=== PATIENT | female | born 1960 | race African-American/Black ===

== ENCOUNTER 2017-03-25 12:19 | Emergency (ER) | payer SELFPAY ==
[2017-03-25 12:42] VITALS: BP 146/84; PULSE 67; TEMP 98.5; BMI 23.9
--- NOTE | 2017-03-25 13:40 | PDOC ---
History of Present Illness - General Chief Complaint: Pain Stated Complaint: LEG INJURY Time Seen by Provider: 03/25/17 13:00 Exam Limitations: No Limitations - History of Present Illness Initial Comments: 03/25/17 13:35 57-year-old female presents the ED for evaluation of right thigh injury. 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 Patient states looked at her skin and noted intact skin along with no blood or rip in uniform. Patient decided come to the ER today since she was worried and needs a second opinion. Timing/Duration: 4-6 hours Associated Symptoms: reports: denies symptoms Past History - Travel Traveled outside of the country in the last 30 days: No - Past Medical History Allergies/Adverse Reactions: Allergies Allergy/AdvReac Type Severity Reaction Status Date / Time No Known Allergies Allergy Verified 03/25/17 12:37 Home Medications: Ambulatory Orders NK [No Known Home Medication] 03/25/17 COPD: No - Suicide/Smoking/Psychosocial Hx Smoking History: Current every day smoker Have you smoked in the past 12 months: Yes Number of Cigarettes Smoked Daily: 7 Information on smoking cessation initiated: Yes 'Breaking Loose' booklet given: 03/25/17 Hx Alcohol Use: No Drug/Substance Use Hx: No Substance Use Type: None Patient Lives Alone: No Lives with/in: spouse/SO Review of Systems - Review of Systems Able to Perform ROS?: Yes Constitutional: No: Symptoms Reported Integumentary: Yes: See HPI *Physical Exam - Vital Signs Last Vital Signs Temp Pulse Resp BP Pulse Ox 98.5 F 67 18 146/84 100 03/25/17 12:38 03/25/17 12:38 03/25/17 12:38 03/25/17 12:38 03/25/17 12:38 - Physical Exam General Appearance: Yes: Nourished, Appropriately Dressed. No: Apparent Distress Extremity: positive: Normal Capillary Refill, Normal Inspection, Normal Range of Motion. negative: Tender Integumentary: positive: Normal Color, Warm, Moist, Other (intact skin noted to rt lower anterior thigh. No redness or ecchymosis) Neurologic: positive: Motor Strength 5/5 (ambulatory) Medical Decision Making - Medical Decision Making 03/25/17 13:37 Pt here for evaluation of rt thigh injury from object in garbage at work. Pt unsure of what pricked her. On exam skin intact, no redness or ecchymosis. Discharge home *DC/Admit/Observation/Transfer Diagnosis at time of Disposition: Injury of right leg - Discharge Dispostion Disposition: HOME Condition at time of disposition: Good - Referrals - Patient Instructions Printed Discharge Instructions: How to Perform a Skin Exam Additional Instructions: At this time the skin was intact with no signs of broken skin. Continue to use safety measures while at work - Post Discharge Activity
== END 2017-03-25 14:13 | disposition home or self-care (01) ==
LOC: JERFT 12:19 → JER 12:19 → JERFT 14:13
DX: S79.821A Other specified injuries of right thigh, initial encounter (principal); W22.8XXA Striking against or struck by other objects, initial encounter; Y93.89 Activity, other specified; Y92.128 Other place in nursing home as the place of occurrence of the external cause; Y99.0 Civilian activity done for income or pay
CPT/HCPCS: 99281-25

== ENCOUNTER 2017-03-31 20:50 | Emergency (ER) | payer OTHER ==
--- NOTE | 2017-03-31 21:27 | PDOC ---
Rapid Medical Evaluation Chief Complaint: Pain, Acute Time Seen by Provider: 03/31/17 21:21 Medical Evaluation: Allergies Allergy/AdvReac Type Severity Reaction Status Date / Time No Known Allergies Allergy Verified 03/25/17 12:37 03/31/17 21:21 have performed a brief in-person evaluation of this patient. The patient presents with a chief complaint of: deep pain to left shoulder x 5 days - works in [place] with heavy lifting, no relief with Aleve. apspercream./ no fevers/ URI symptoms Pertinent physical exam findings: pain at upper deltoid/ ligamentous area. I have ordered the following: right shoulder XRAY The patient will proceed to the ED for further evaluation.
[2017-03-31 21:32] VITALS: BP 138/71; PULSE 68; TEMP 98.1; BMI 23.9
[2017-03-31] MEDS ORDERED: CYCLOBENZAPRINE HCL 10 MG TABLET (FP) PO ONE ×2 (22:42→22:44)
[2017-03-31] MEDS ORDERED: KETOROLAC TROMETHAMINE 30 MG/1 ML VIAL IM ONE (22:42)
[2017-03-31] MEDS ORDERED: CYCLOBENZAPRINE HCL 10 MG TABLET (FP) ONE (22:43)
[2017-03-31] MEDS ORDERED: KETOROLAC TROMETHAMINE 30 MG/1 ML VIAL ONE (22:44)
--- NOTE | 2017-03-31 22:47 | PDOC ---
History of Present Illness - General Chief Complaint: Pain, Acute Stated Complaint: SHOULDER PAIN Time Seen by Provider: 03/31/17 21:21 Past History - Past Medical History Allergies/Adverse Reactions: Allergies Allergy/AdvReac Type Severity Reaction Status Date / Time No Known Allergies Allergy Verified 03/31/17 21:33 Home Medications: Ambulatory Orders Ibuprofen 800 mg PO TID #30 tablet 03/31/17 COPD: No - Suicide/Smoking/Psychosocial Hx Smoking History: Never smoked Have you smoked in the past 12 months: Yes Number of Cigarettes Smoked Daily: 7 'Breaking Loose' booklet given: 03/25/17 Hx Alcohol Use: No Drug/Substance Use Hx: No Substance Use Type: None *Physical Exam - Vital Signs Last Vital Signs Temp Pulse Resp BP Pulse Ox 98.1 F 68 16 138/71 100 03/31/17 21:30 03/31/17 21:30 03/31/17 21:30 03/31/17 21:30 03/31/17 21:30 *DC/Admit/Observation/Transfer Diagnosis at time of Disposition: Tendonitis of shoulder, right - Discharge Dispostion Disposition: HOME Condition at time of disposition: Good Admit: No - Referrals Referrals: Alfredo Guerrero MD [Staff Physician] - - Patient Instructions Printed Discharge Instructions: DI for Shoulder Tendinopathy Additional Instructions: You have shoulder tendonitis and a bone spur as seen on your x-ray. Please follow up with orthopedics this week. You may take 800mg every 8 hours as needed for pain. You may use a heating pad on the shoulder to help with pain. Gentle stretching of your arm may help as well. Return to the ED if you have worsening pain, numbness and tingling, or weakness in your arm, or any changes in your symptoms - Post Discharge Activity Forms/Work/School Notes: Back to Work
== END 2017-03-31 22:57 | disposition home or self-care (01) ==
LOC: JERFT 20:50
PROC: 3E0233Z Introduction of Anti-inflammatory into Muscle, Percutaneous Approach (ICD-10-PCS; principal; 2017-03-31)
DX: M75.82 Other shoulder lesions, left shoulder (principal)
CPT/HCPCS: 73030-TC-RT; 99281-25

== ENCOUNTER 2018-01-05 21:23 | Emergency (ER) | payer OTHER ==
--- NOTE | 2018-01-05 21:42 | PDOC ---
Rapid Medical Evaluation Chief Complaint: Eye Problem Time Seen by Provider: 01/05/18 21:40 Medical Evaluation: Allergies Allergy/AdvReac Type Severity Reaction Status Date / Time No Known Allergies Allergy Verified 09/15/17 00:29 01/05/18 21:40 left eye lid swelling x 1 days. denies pain to alessandro eye with movement PE; left eye lid swelling A: preseptal celllitis? P: patient to the ER for further management of care. Discharge Disposition - Diagnosis Preseptal cellulitis of left upper eyelid - Referrals Referrals: Rory Carroll MD [Primary Care Provider] - - Patient Instructions - Post Discharge Activity
[2018-01-05 21:43] VITALS: BP 125/78; PULSE 76; TEMP 98.6; BMI 28.0
[2018-01-05] MEDS ORDERED: ERYTHROMYCIN 0.5% OPHTHALMIC OINTMENT 3.5 GM TUBE OD ONE (22:25)
--- NOTE | 2018-01-05 22:28 | PDOC ---
History of Present Illness - General Chief Complaint: Eye Problem Stated Complaint: Eye Problem Time Seen by Provider: 01/05/18 21:40 History Source: Patient Exam Limitations: No Limitations - History of Present Illness Initial Comments: 01/05/18 22:24 57 yr female with left eyelid swelling started this am. pt noticed discharge in inner corner, itchy since last night. no contacts, no trauma to the eye. 01/05/18 22:29 Timing/Duration: 24 hours Severity: mild Past History - Past Medical History Allergies/Adverse Reactions: Allergies Allergy/AdvReac Type Severity Reaction Status Date / Time No Known Allergies Allergy Verified 01/05/18 21:43 Home Medications: Ambulatory Orders Erythromycin 0.5% Eye Ointment [Erythromycin 0.5% Eye Ointment -] 1 applic OS TID #1 tube 01/05/18 COPD: No - Suicide/Smoking/Psychosocial Hx Smoking History: Former smoker Have you smoked in the past 12 months: Yes Number of Cigarettes Smoked Daily: 7 If you are a former smoker, when did you quit?: 6 months ago Information on smoking cessation initiated: No 'Breaking Loose' booklet given: 03/25/17 Hx Alcohol Use: No Drug/Substance Use Hx: No Substance Use Type: None Review of Systems - Review of Systems Able to Perform ROS?: Yes Is the patient limited Ethiopian proficient: No Constitutional: No: Symptoms Reported HEENTM: Yes: Symptoms Reported *Physical Exam - Vital Signs Last Vital Signs Temp Pulse Resp BP Pulse Ox 98.6 F 76 17 125/78 100 01/05/18 21:40 01/05/18 21:40 01/05/18 21:40 01/05/18 21:40 01/05/18 21:40 - Physical Exam General Appearance: Yes: Nourished, Appropriately Dressed HEENT: positive: EOMI, DHARA, Other (left upper eyelid with swelling, punctuate center with redness, neg bony tenderness, EOMI no pain , no discharge ) Medical Decision Making - Medical Decision Making 01/08/18 08:52 cc: left upper eyelid swelling , no drainage, no fever no chills EOMI without pain will treat for stye, possible early cellulitus preseptal. warm compresses to the area of pain refer to eye doctor for follow up in 2-3 days pt agrees with plan all questions asked and answered *DC/Admit/Observation/Transfer Diagnosis at time of Disposition: Preseptal cellulitis of left upper eyelid Stye Qualifiers: Laterality: left Eyelid: upper Qualified Code(s): H00.014 - Hordeolum externum left upper eyelid - Discharge Dispostion Disposition: HOME Condition at time of disposition: Good - Prescriptions Prescriptions: Erythromycin 0.5% Eye Ointment [Erythromycin 0.5% Eye Ointment -] 1 applic OS TID #1 tube - Referrals Referrals: Rory Carroll MD [Primary Care Provider] - Rosalio Jarvis [Staff Physician] - - Patient Instructions Additional Instructions: frequent warm compresses to the upper eyelid for 10 minutes every 3-4hrs apply erythromycin eye ointment 3-4 times a day follow with the eye doctor next week for follow up if not improving Return to ER if worse - Post Discharge Activity
[2018-01-05] MEDS ORDERED: ERYTHROMYCIN 0.5% OPHTHALMIC OINTMENT 3.5 GM TUBE ONE (22:30)
== END 2018-01-05 22:39 | disposition home or self-care (01) ==
LOC: JERFT 21:23
DX: L03.213 Periorbital cellulitis (principal); H00.014 Hordeolum externum left upper eyelid
CPT/HCPCS: 99281-25

== ENCOUNTER 2019-02-06 13:27 | Emergency (ER) | payer OTHER ==
[2019-02-06 13:31] VITALS: BP 126/84; PULSE 73; TEMP 98.2; BMI 28.0
--- NOTE | 2019-02-06 13:53 | PDOC ---
History of Present Illness - General Chief Complaint: Pain Stated Complaint: LT. FOOT PAIN Time Seen by Provider: 02/06/19 13:42 History Source: Patient - History of Present Illness Occurred: reports: other Severity: Yes: moderate Lower Extremity Pain Location: left: foot Past History - Past Medical History Allergies/Adverse Reactions: Allergies Allergy/AdvReac Type Severity Reaction Status Date / Time No Known Allergies Allergy Verified 02/06/19 13:31 Home Medications: Ambulatory Orders Erythromycin 0.5% Eye Ointment [Erythromycin 0.5% Eye Ointment -] 1 applic OS TID #1 tube 01/05/18 Cyclobenzaprine HCl [Flexeril 10 mg] 10 mg PO HS PRN #9 tablet 02/06/19 Ibuprofen [Motrin -] 800 mg PO Q6H #30 tablet 02/06/19 COPD: No - Psycho Social/Smoking Cessation Hx Smoking History: Never smoked Have you smoked in the past 12 months: Yes Number of Cigarettes Smoked Daily: 7 If you are a former smoker, when did you quit?: 6 months ago Information on smoking cessation initiated: No 'Breaking Loose' booklet given: 03/25/17 Hx Alcohol Use: No Drug/Substance Use Hx: No Substance Use Type: None Review of Systems - Review of Systems Musculoskeletal: No: Joint Swelling *Physical Exam - Vital Signs Last Vital Signs Temp Pulse Resp BP Pulse Ox 98.2 F 73 19 126/84 99 02/06/19 13:29 02/06/19 13:29 02/06/19 13:29 02/06/19 13:29 02/06/19 13:29 - Physical Exam General Appearance: Yes: Appropriately Dressed. No: Apparent Distress HEENT: positive: Normal Voice Neck: positive: Supple Respiratory/Chest: negative: Respiratory Distress Extremity: positive: Tender (to medial arch of plantar aspect of L foot, no swelling or erythema) Integumentary: positive: Dry, Warm Neurologic: positive: Fully Oriented, Alert, Normal Mood/Affect Medical Decision Making - Medical Decision Making 02/06/19 14:38 58-year-old female, no significant history, here with ongoing intermittent L foot pain. Patient states for the past several months she has had pain to the arch of her L foot, worse when initiating steps in the morning, improves throughout the day. For unclear reasons has never been medically evaluated for same, here today because feels the pain is getting worse. Not taking anything for symptoms See exam Suspect plantar fasciitis + ttp to medial arch of plantar L foot w/ pain on dorsiflexion -Dc w/ pain control and podiatry f/u Discharge - Discharge Information Problems reviewed: Yes Clinical Impression/Diagnosis: Foot pain Qualifiers: Laterality: left Qualified Code(s): M79.672 - Pain in left foot Condition: Good Disposition: HOME - Additional Discharge Information Prescriptions: Cyclobenzaprine HCl [Flexeril 10 mg] 10 mg PO HS PRN #9 tablet PRN Reason: Pain Ibuprofen [Motrin -] 800 mg PO Q6H #30 tablet - Follow up/Referral Referrals: Swapnil Isaac MD [Staff Physician] - - Patient Discharge Instructions Patient Printed Discharge Instructions: Plantar Fasciitis Additional Instructions: Please take medications as prescribed and follow-up with Dr. Hua her of podiatry for further evaluation and management - Post Discharge Activity Work/Back to School Note: Back to Work
== END 2019-02-06 14:12 | disposition home or self-care (01) ==
LOC: JERFT 13:27
DX: M79.672 Pain in left foot (principal); Z87.891 Personal history of nicotine dependence
CPT/HCPCS: 99281-25

== ENCOUNTER 2019-03-15 14:00 | Emergency (ER) | payer OTHER ==
[2019-03-15 14:06] VITALS: BP 146/75; PULSE 77; TEMP 98; BMI 27.4
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
[2019-03-15] MEDS ORDERED: IBUPROFEN 600 MG TABLET (FP) PO ONE ×2 (14:21→14:32)
== END 2019-03-15 14:45 | disposition home or self-care (01) ==
LOC: JERFT 14:00
DX: S16.1XXA Strain of muscle, fascia and tendon at neck level, initial encounter (principal); V44.5XXA Car driver injured in collision with heavy transport vehicle or bus in traffic accident, initial encounter; Y92.414 Local residential or business street as the place of occurrence of the external cause; Y93.89 Activity, other specified; Y99.8 Other external cause status
CPT/HCPCS: 99281-25

== ENCOUNTER 2019-03-18 16:46 | Emergency (ER) | payer OTHER ==
[2019-03-18 17:22] VITALS: BP 144/69; PULSE 78; TEMP 98.5; BMI 27.3
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
== END 2019-03-18 21:44 | disposition home or self-care (01) ==
LOC: JERFT 16:46
DX: S16.1XXD Strain of muscle, fascia and tendon at neck level, subsequent encounter (principal); G44.309 Post-traumatic headache, unspecified, not intractable; F07.81 Postconcussional syndrome; V44.5XXD Car driver injured in collision with heavy transport vehicle or bus in traffic accident, subsequent encounter
CPT/HCPCS: 70450-TC; 72125-TC; 99281-25

== ENCOUNTER 2019-05-08 13:02 | Emergency (ER) | payer OTHER ==
[2019-05-08 13:20] VITALS: BP 145/67; PULSE 72; TEMP 98.2; BMI 27.8
[2019-05-08] MEDS ORDERED: DIPHTH,PERTUSS(ACELL),TET 0.5 ML DISP.SYRIN IM ONE ×2 (13:37→13:58)
--- NOTE | 2019-05-08 13:40 | PDOC ---
History of Present Illness - General Chief Complaint: Laceration Stated Complaint: CUT LFT FINGER Time Seen by Provider: 05/08/19 13:27 History Source: Patient - History of Present Illness Timing/Duration: reports: yesterday Location: reports: other (finger) Past History - Past Medical History Allergies/Adverse Reactions: Allergies Allergy/AdvReac Type Severity Reaction Status Date / Time No Known Allergies Allergy Verified 05/08/19 13:20 Home Medications: Ambulatory Orders NK [No Known Home Medication] 03/18/19 COPD: No - Psycho Social/Smoking Cessation Hx Smoking History: Never smoked Have you smoked in the past 12 months: No Number of Cigarettes Smoked Daily: 7 If you are a former smoker, when did you quit?: 2 YEARS AGO Information on smoking cessation initiated: No 'Breaking Loose' booklet given: 03/25/17 Hx Alcohol Use: No Drug/Substance Use Hx: No Substance Use Type: None Review of Systems - Review of Systems Constitutional: No: Fever Neurological: No: Numbness *Physical Exam - Vital Signs Last Vital Signs Temp Pulse Resp BP Pulse Ox 98.2 F 72 17 145/67 99 05/08/19 13:18 05/08/19 13:18 05/08/19 13:18 05/08/19 13:18 05/08/19 13:18 - Physical Exam General Appearance: Yes: Appropriately Dressed. No: Apparent Distress HEENT: positive: Normal Voice Neck: positive: Supple Respiratory/Chest: negative: Respiratory Distress Extremity: positive: Other (~1cm cutaneous lac to lateral aspect of distal phalanx of L 2nd digit, no nail involvement, FROMI, sensation intact) Integumentary: positive: Dry, Warm Neurologic: positive: Fully Oriented, Alert, Normal Mood/Affect Medical Decision Making - Medical Decision Making 05/08/19 13:36 59-year-old female, no significant history, here w/ lac to L index while handling knife last night. No numbness or tingling. Needs tetanus See exam Minor finger lac No e/o complications Tetanus updated Local wound care/dressing in ED To return for wound check as needed Discharge - Discharge Information Problems reviewed: Yes Clinical Impression/Diagnosis: Finger laceration Qualifiers: Encounter type: initial encounter Finger: index finger Damage to nail status: without damage Foreign body presence: without foreign body Laterality: left Qualified Code(s): S61.211A - Laceration without foreign body of left index finger without damage to nail, initial encounter Condition: Good Disposition: HOME - Follow up/Referral - Patient Discharge Instructions Patient Printed Discharge Instructions: DI for Minor Laceration - Post Discharge Activity
== END 2019-05-08 14:00 | disposition home or self-care (01) ==
LOC: JERFT 13:02
PROC: 3E0234Z Introduction of Serum, Toxoid and Vaccine into Muscle, Percutaneous Approach (ICD-10-PCS; principal; 2019-05-08)
DX: S61.211A Laceration without foreign body of left index finger without damage to nail, initial encounter (principal); W26.0XXA Contact with knife, initial encounter; Y93.89 Activity, other specified; Y92.89 Other specified places as the place of occurrence of the external cause
CPT/HCPCS: 90715; 99282-25

== ENCOUNTER 2020-02-15 12:30 | Emergency (ER) | payer OTHER ==
[2020-02-15 12:42] VITALS: BMI 27.4
[2020-02-15] MEDS ORDERED: KETOROLAC TROMETHAMINE 30 MG/1 ML VIAL IM ONE (15:04)
[2020-02-15] MEDS ORDERED: LIDOCAINE 5% TOPICAL PATCH TP ONE (15:04)
[2020-02-15] MEDS ORDERED: ACETAMINOPHEN 500 MG TABLET (FP) PO ONE (15:04)
[2020-02-15] MEDS ORDERED: KETOROLAC TROMETHAMINE 30 MG/1 ML VIAL ONE (15:17)
[2020-02-15] MEDS ORDERED: LIDOCAINE 5% TOPICAL PATCH ONE (15:17)
[2020-02-15] MEDS ORDERED: ACETAMINOPHEN 325 MG TABLET (FP) ONE (15:18)
[2020-02-15 16:00] VITALS: BP 110/75; PULSE 76; TEMP 98.2
[2020-02-15] MEDS ORDERED: LIDOCAINE PATCH REMOVAL MC ONE (22:00)
== END 2020-02-15 15:35 | disposition home or self-care (01) ==
LOC: JER 12:30
PROC: 3E0233Z Introduction of Anti-inflammatory into Muscle, Percutaneous Approach (ICD-10-PCS; principal; 2020-02-15)
DX: M54.32 Sciatica, left side (principal)
CPT/HCPCS: 99284-25

== ENCOUNTER 2020-04-04 23:28 | Emergency (ER) | payer OTHER ==
[2020-04-04 23:57] VITALS: BP 127/85; PULSE 82; TEMP 98.3; BMI 26.4
[2020-04-05 00:48] LABS: BASO % 1.5 % (0-2.0); EOS % 5.3 % (0-4.5); HEMATOCRIT 37.8 % (32.4-45.2); HEMOGLOBIN 12.6 GM/dL (10.7-15.3); LYMPH % 32.4 % (8-40); MCH 28.5 pg (25.7-33.7); MCHC 33.3 g/dl (32.0-36.0); MEAN CELL VOLUME 85.5 fl (80-96); MEAN PLT VOLUME 10.9 fl (7.5-11.1); MONO % 7.7 % (3.8-10.2); NEUT % 53.1 % (42.8-82.8); PLATELET COUNT 163 K/MM3 (134-434); RBC 4.42 M/mm3 (3.60-5.2); RDW 14.3 % (11.6-15.6); WHITE BLOOD COUNT 6.2 K/mm3 (4.0-10.0)
[2020-04-05] MEDS ORDERED: HYDROCHLOROTHIAZIDE 25 MG TABLET (FP) PO ONE (00:54)
[2020-04-05] MEDS ORDERED: HYDROCHLOROTHIAZIDE 25 MG TABLET (FP) ONE (01:02)
[2020-04-05 01:10] LABS: POTASSIUM 3.7 mmol/L (3.5-5.1)
[2020-04-05 01:12] LABS: ALBUMIN 3.6 g/dl (3.4-5.0); BLOOD UREA NITROGEN 17.3 mg/dL (7-18); CALCIUM 8.7 mg/dL (8.5-10.1)
[2020-04-05 01:15] LABS: CREATININE 0.9 mg/dL (0.55-1.3)
[2020-04-05 01:17] LABS: BILIRUBIN,TOTAL 0.2 mg/dL (0.2-1); TOT PROT 6.8 g/dl (6.4-8.2)
== END 2020-04-05 01:24 | disposition home or self-care (01) ==
LOC: JER 23:28
DX: R03.0 Elevated blood-pressure reading, without diagnosis of hypertension (principal)
CPT/HCPCS: 36415; 80053; 85025; 93005; 93010; 99284-25

== ENCOUNTER 2020-11-22 12:52 | Emergency (ER) | payer OTHER ==
[2020-11-22 12:56] VITALS: BP 125/69; PULSE 80; TEMP 97; BMI 25.4
== END 2020-11-22 13:47 | disposition home or self-care (01) ==
LOC: JERFT 12:52
DX: Z48.00 Encounter for change or removal of nonsurgical wound dressing (principal)
CPT/HCPCS: 99281-25

== ENCOUNTER 2021-12-13 13:14 | Emergency (ER) | payer BC ==
[2021-12-13 13:30] VITALS: BP 135/72; PULSE 95; RESP 18; TEMP 97.4; BMI 27.1
== END 2021-12-13 14:41 | disposition home or self-care (01) ==
LOC: JERFT 13:14
DX: M79.652 Pain in left thigh (principal)
CPT/HCPCS: 73552-TC-LT-FY; 99283-25

== ENCOUNTER 2022-01-09 15:32 | Emergency (ER) | payer BC, OTHER ==
[2022-01-09 15:39] VITALS: BP 118/62; PULSE 80; RESP 18; TEMP 98; BMI 27.3
== END 2022-01-09 17:00 | disposition home or self-care (01) ==
LOC: JERFT 15:32
DX: S61.212A Laceration without foreign body of right middle finger without damage to nail, initial encounter (principal)
CPT/HCPCS: 99282-25

== ENCOUNTER 2022-01-11 16:12 | Emergency (ER) | payer OTHER ==
[2022-01-11 16:30] VITALS: BP 112/62; PULSE 99; RESP 17; TEMP 98; BMI 27.3
== END 2022-01-11 18:00 | disposition home or self-care (01) ==
LOC: JER 16:12 → JERFT 16:12
DX: S61.312A Laceration without foreign body of right middle finger with damage to nail, initial encounter (principal); W26.8XXA Contact with other sharp object(s), not elsewhere classified, initial encounter
CPT/HCPCS: 99282-25

== ENCOUNTER 2023-06-02 23:41 | Emergency (ER) | payer OTHER, BC ==
[2023-06-02 23:53] VITALS: BP 124/78; PULSE 71; RESP 20; TEMP 97.4; BMI 27.3
[2023-06-03] MEDS ORDERED: LIDOCAINE 4% PATCH TP ONE (00:50)
[2023-06-03] MEDS ORDERED: ACETAMINOPHEN 500 MG TABLET (FP) ONE (00:50)
[2023-06-03] MEDS: LIDOCAINE 4% PATCH TP ONE (00:56)
[2023-06-03] MEDS: ACETAMINOPHEN 500 MG TABLET (FP) PO ONE (00:56)
[2023-06-03] MEDS ORDERED: LIDOCAINE PATCH REMOVAL MC SCH (22:00)
== END 2023-06-03 01:33 | disposition home or self-care (01) ==
LOC: JER 23:41
DX: M54.50 Low back pain, unspecified (principal); X50.0XXA Overexertion from strenuous movement or load, initial encounter; Y99.0 Civilian activity done for income or pay
CPT/HCPCS: 99283-25

== ENCOUNTER 2023-07-11 17:49 | Emergency (ER) | payer OTHER ==
[2023-07-11 18:13] VITALS: BP 128/69; PULSE 79; RESP 17; TEMP 98.3; BMI 27.3
[2023-07-11] MEDS ORDERED: ACETAMINOPHEN 500 MG TABLET (FP) ONE (18:44)
[2023-07-11] MEDS: ACETAMINOPHEN 500 MG TABLET (FP) PO ONE (18:45)
== END 2023-07-11 20:18 | disposition home or self-care (01) ==
LOC: JERFT 17:49
DX: M25.511 Pain in right shoulder (principal); M25.532 Pain in left wrist; M25.562 Pain in left knee; M25.611 Stiffness of right shoulder, not elsewhere classified; M25.632 Stiffness of left wrist, not elsewhere classified; M25.662 Stiffness of left knee, not elsewhere classified; W01.0XXA Fall on same level from slipping, tripping and stumbling without subsequent striking against object, initial encounter
CPT/HCPCS: 73030-TC-RT-FY; 73110-TC-LT-FY; 73130-TC-LT-FY; 73562-TC-LT-FY; 99284-25

== ENCOUNTER 2023-08-01 16:01 | Emergency (ER) | payer SELFPAY ==
[2023-08-01 16:37] VITALS: BP 128/56; RESP 17; TEMP 100.3; BMI 27.3
[2023-08-01 17:01] VITALS: PULSE 89
[2023-08-01] MEDS ORDERED: ACETAMINOPHEN 500 MG TABLET (FP) ONE (17:29)
[2023-08-01] MEDS: ACETAMINOPHEN 500 MG TABLET (FP) PO ONE (17:44)
== END 2023-08-01 18:23 | disposition home or self-care (01) ==
LOC: JERFT 16:01
DX: U07.1 COVID-19 (principal); R05.9 Cough, unspecified; R09.81 Nasal congestion
CPT/HCPCS: 0241U-QW; 71046-TC-FY; 99284-25